=== PATIENT | male | born 1940 | race Caucasian/White ===

== ENCOUNTER → 2017-08-07 | Outpatient (CLI) | payer MEDICARE ==
[2017-08-07 10:46] LABS: Basophils # (A) 0.1 k/uL (0-0.2); Basophils % (A) 2 %; Eosinophils # (A) 0.4 k/uL (0-0.7); Eosinophils % (A) 6 %; HCT 47.9 % (39.0-53.0); HGB 16.5 gm/dL (13.0-17.5); Lymphocytes # (A) 1.3 k/uL (1.0-4.8); Lymphocytes % (A) 19 %; MCH 29.5 pg (25.0-35.0); MCHC 34.5 g/dL (31.0-37.0); MCV 85.6 fL (80.0-100.0); Mean Platelet Volume 6.9; Monocytes # (A) 0.5 k/uL (0-1.0); Monocytes % (A) 7 %; Neutrophils # (A) 4.4 k/uL (1.3-7.7); Neutrophils % (A) 65 %; Platelet Count 262 k/uL (150-450); RBC 5.59 m/uL (4.30-5.90); RDW 13.2 % (11.5-15.5); WBC 6.7 k/uL (3.8-10.6)
[2017-08-07 11:07] LABS: ALT 42 U/L (21-72); AST 29 U/L (17-59); Albumin 4.4 g/dL (3.5-5.0); Alkaline Phosphatase 126 U/L (38-126); Anion Gap 10 mmol/L; Blood Urea Nitrogen 15 mg/dL (9-20); Calcium 9.7 mg/dL (8.4-10.2); Carbon Dioxide 24 mmol/L (22-30); Chloride 104 mmol/L (98-107); Cholesterol 156 mg/dL (<200); Creatine Kinase 150 U/L (55-170); Glucose 103 mg/dL (74-99); HDL Cholesterol 47 mg/dL (40-60); LDL Cholesterol,Calculated 91 mg/dL (0-99); Sodium 138 mmol/L (137-145); Total Bilirubin 0.8 mg/dL (0.2-1.3); Total Protein 7.3 g/dL (6.3-8.2); Triglycerides 92 mg/dL (<150)
[2017-08-07 11:19] LABS: Potassium 4.6 mmol/L (3.5-5.1)
[2017-08-07 18:01] LABS: Hemoglobin A1C 5.1 % (4.0-6.0)
== END | disposition home or self-care (01) ==
LOC: LABWHC1 10:12
PROVIDERS: ATTEND Internal Medicine
DX: E78.5 Hyperlipidemia, unspecified (principal); I10 Essential (primary) hypertension
CPT/HCPCS: 36415; 80053; 80061; 82550; 83036; 83735; 84443; 85025

== ENCOUNTER → 2018-01-28 | Outpatient (CLI) | payer MEDICARE ==
--- NOTE | 2018-01-28 13:14 | XR ---
EXAMINATION TYPE: XR ankle complete RT DATE OF EXAM: 01/28/2018 COMPARISON: NONE HISTORY: Pain TECHNIQUE: Frontal, lateral and oblique images of the right ankle are obtained. COMPARISON: None. FINDINGS: There is no acute fracture/dislocation evident. The joint spaces appear within normal rodriguez its. Lateral soft tissue swelling noted. IMPRESSION: There is no acute fracture or dislocation seen.
== END | disposition home or self-care (01) ==
LOC: RADXRMAIN 12:45
PROVIDERS: ATTEND Internal Medicine
DX: M25.571 Pain in right ankle and joints of right foot (principal)

== ENCOUNTER → 2018-05-03 | Outpatient (CLI) | payer MEDICARE ==
[2018-05-03 12:12] LABS: Appearance,Urine Clear (Clear); Bilirubin,Urine Negative (Negative); Blood,Urine Negative (Negative); Color,Urine Yellow; Glucose,Urine (UA) Negative (Negative); Ketones,Urine Negative (Negative); Leukocyte Esterase,Urine Negative (Negative); Nitrite,Urine Negative (Negative); PH, Urine 6.5 (5.0-8.0); Protein,Urine Negative (Negative); Specific Gravity,Urine 1.016 (1.001-1.035); Urobilinogen,Urine <2.0 mg/dL (<2.0)
[2018-05-03 12:13] LABS: Basophils # (A) 0.1 k/uL (0-0.2); Basophils % (A) 1 %; Eosinophils # (A) 0.2 k/uL (0-0.7); Eosinophils % (A) 4 %; HCT 42.7 % (39.0-53.0); HGB 14.6 gm/dL (13.0-17.5); Lymphocytes # (A) 1.3 k/uL (1.0-4.8); Lymphocytes % (A) 22 %; MCH 30.2 pg (25.0-35.0); MCHC 34.2 g/dL (31.0-37.0); MCV 88.3 fL (80.0-100.0); Mean Platelet Volume 7.2; Monocytes # (A) 0.4 k/uL (0-1.0); Monocytes % (A) 7 %; Neutrophils # (A) 3.7 k/uL (1.3-7.7); Neutrophils % (A) 64 %; Platelet Count 264 k/uL (150-450); RBC 4.83 m/uL (4.30-5.90); RDW 13.8 % (11.5-15.5); WBC 5.8 k/uL (3.8-10.6)
[2018-05-03 20:56] LABS: T4, Free (Free Thyroxine) 1.1 ng/dL (0.80-1.80)
[2018-05-03 21:11] LABS: Hemoglobin A1C 5.1 % (4.0-6.0)
[2018-05-03 22:02] LABS: Albumin 4.5 g/dL (3.80-4.90); Albumin/Globulin Ratio 2.25 (1.20-2.10); Anion Gap 9.5 mmol/L (4.00-12.00); Calcium 8.4 mg/dL (8.7-10.3); Carbon Dioxide 24.5 mmol/L (21.6-31.8); Total Bilirubin 0.8 mg/dL (0.2-1.2); Total Protein 6.5 g/dL (6.2-8.2); Uric Acid 6.1 mg/dL (3.7-8.7)
[2018-05-03 22:03] LABS: LDL Cholesterol,Calculated 122.6 mg/dL (0.0-131.0); Magnesium 1.9 mg/dL (1.5-2.4); VLDL Calculation 23.4 mg/dL (5.00-40.00)
== END | disposition home or self-care (01) ==
LOC: LABWHC1 11:15
PROVIDERS: ATTEND Internal Medicine
DX: I10 Essential (primary) hypertension (principal); E78.5 Hyperlipidemia, unspecified; N40.0 Benign prostatic hyperplasia without lower urinary tract symptoms; R79.9 Abnormal finding of blood chemistry, unspecified
CPT/HCPCS: 36415; 80053; 80061; 81003; 82550; 83036; 83735; 84153; 84439; 84443; 84550; 85025

== ENCOUNTER → 2018-10-29 | Outpatient (CLI) | payer MEDICARE ==
[2018-10-29 11:43] LABS: Appearance,Urine Clear (Clear); Bilirubin,Urine Negative (Negative); Blood,Urine Negative (Negative); Color,Urine Yellow; Glucose,Urine (UA) Negative (Negative); Ketones,Urine Negative (Negative); Leukocyte Esterase,Urine Negative (Negative); Nitrite,Urine Negative (Negative); Protein,Urine Negative (Negative); Specific Gravity,Urine 1.016 (1.001-1.035); Urobilinogen,Urine <2.0 mg/dL (<2.0)
[2018-10-29 12:18] LABS: Basophils # (A) 0.1 k/uL (0-0.2); Basophils % (A) 1 %; Eosinophils # (A) 0.3 k/uL (0-0.7); Eosinophils % (A) 5 %; HCT 44.6 % (39.0-53.0); HGB 14.6 gm/dL (13.0-17.5); Lymphocytes # (A) 1.3 k/uL (1.0-4.8); Lymphocytes % (A) 21 %; MCH 28.5 pg (25.0-35.0); MCHC 32.8 g/dL (31.0-37.0); Mean Platelet Volume 7.5; Monocytes # (A) 0.4 k/uL (0-1.0); Monocytes % (A) 7 %; Neutrophils # (A) 4.1 k/uL (1.3-7.7); Neutrophils % (A) 64 %; Platelet Count 285 k/uL (150-450); RBC 5.12 m/uL (4.30-5.90); RDW 14.8 % (11.5-15.5); WBC 6.4 k/uL (3.8-10.6)
[2018-10-29 16:05] LABS: Albumin 4.3 g/dL (3.80-4.90); Albumin/Globulin Ratio 2.26 (1.60-3.17); Anion Gap 5.8 mmol/L (4.00-12.00); Calcium 9.2 mg/dL (8.7-10.3); Carbon Dioxide 25.2 mmol/L (21.6-31.8); Globulin 1.9 g/dL (1.6-3.3); Magnesium 2.1 mg/dL (1.5-2.4); Potassium 4.3 mmol/L (3.5-5.5); Total Bilirubin 0.9 mg/dL (0.3-1.2); Total Protein 6.2 g/dL (6.2-8.2); Uric Acid 5.9 mg/dL (3.7-8.7)
== END | disposition home or self-care (01) ==
LOC: LABWHC1 10:59
PROVIDERS: ATTEND Internal Medicine
DX: I10 Essential (primary) hypertension (principal); E78.2 Mixed hyperlipidemia; E55.9 Vitamin D deficiency, unspecified
CPT/HCPCS: 36415; 80053; 80061; 81003; 82550; 83735; 84439; 84443; 84550; 85025

== ENCOUNTER → 2019-01-24 | Outpatient (CLI) | payer MEDICARE ==
--- NOTE | 2019-01-25 11:15 | US ---
EXAMINATION TYPE: US kidneys/renal and bladder DATE OF EXAM: 01/24/2019 COMPARISON: US, CLINICAL HISTORY: R31.9 Hematuria; Renal cysts EXAM MEASUREMENTS: Right Kidney: 15.1 x 5.4 x 6.1 cm includes superior pole cyst Left Kidney: 12.7 x 4.5 x 6.3 cm Post Void Residual Volume: 63.2 mL Right Kidney: multiple renal cysts with largest cyst = 7.3 x 6.1 x 5.2cm Left Kidney: cluster of cysts at left lateral cortex = 6.1 x 5.3 x 5.0cm; cluster of superior pole sh adowing, calcifications are seen = 1.0 x 1.1 x 0.4cm. Bladder: wnl; prominent prostate is noted posteriorly Bilateral Jets seen: yes Normal Post Void Residual: no, as volume is greater than 50.0ml There is no evidence for hydronephrosis at this point in time. No masses are identified. The urinary bladder is anechoic. Bilateral ureteral jets are seen. IMPRESSION: 1. Multiple bilateral renal cysts. 2. Nonobstructing calcification within the left kidney. 3. Urinary retention
== END | disposition home or self-care (01) ==
LOC: RADUSMAIN 15:51
PROVIDERS: ATTEND Internal Medicine
DX: N28.1 Cyst of kidney, acquired (principal); N28.89 Other specified disorders of kidney and ureter; R33.9 Retention of urine, unspecified
CPT/HCPCS: 76770

== ENCOUNTER → 2019-04-25 | Outpatient (CLI) | payer MEDICARE ==
[2019-04-25 14:34] LABS: African American GFR (CKD) >90 (>60 ml/min/1.73 sqM); Blood Urea Nitrogen 11 mg/dL (9-20); Non-African American GFR(CKD) 85 (>60 ml/min/1.73 sqM)
--- NOTE | 2019-04-25 17:07 | CT ---
EXAMINATION TYPE: CT urogram wo/w con DATE OF EXAM: 04/25/2019 COMPARISON: Renal ultrasound dated 01/24/2019 HISTORY: hematuria. hx of stones. CT DLP: 3086.7 mGycm, Automated Exposure Control for Dose Reduction was Utilized. CONTRAST: CT scan of the abdomen and pelvis is performed with oral and with IV Contrast, patient injected with 100 mL of Isovue 300. FINDINGS: LUNG BASES: No significant abnormality is appreciated. Few coronary artery calcifications are incide ntally seen. LIVER/GB: There are hypoattenuated hepatic lesions with the largest measuring 3.3 cm, fluid attenuate d compatible with a benign cyst. Cholelithiasis is seen. Benign calcifications are present granulomat ous change. PANCREAS: No significant abnormality is seen. SPLEEN: For negative granulomatous change. ADRENALS: No significant abnormality is seen. KIDNEYS: The unenhanced images demonstrate a left upper pole 5 mm nonobstructing renal calculus and r ight lower pole 5 mm nonobstructing renal calculus. Emanating from the right upper pole there is an e xophytic 6.9 cm renal cyst. Emanating from the anterior right midpole there is a 3.1 cm renal cyst. F rom the lower pole of the right kidney there is a fluid attenuated 1.3 cm renal cyst. On the left fro m the lower pole there is a 5.4 cm renal cyst. Weighted images demonstrate no evidence of hydronephro sis. No uroepithelial thickening is seen. Delayed images do demonstrate punctate cortically-based dutch ateral subcentimeter renal lesions that are too small to accurately characterize. Incidentally noted circumaortic left renal vein. BOWEL: There is a small hiatal hernia. There are numerous sigmoid diverticula without pericolic fat s tranding. Appendix is air-filled and within normal limits. PROSTATE/SEMINAL VESICLES: Prostate gland is nodular and enlarged impressing upon the urinary bladder . Prostate gland is also heterogenous with central zone calcifications. The prostate gland measures 6 .4 cm in transverse dimension. LYMPH NODES: No greater than 1cm abdominal or pelvic lymph nodes are appreciated. OSSEOUS STRUCTURES: Sclerotic foci of the femoral head on the right are likely as is a sacral sclerot ic focus on image 67. L1 vertebral body hemangioma is seen. IMPRESSION: 1. Bilateral nonobstructing renal calculi. 2. Bilateral simple appearing renal cysts and other subcentimeter lesions that are too small to accur ately characterize. 3. Enlarged and heterogenous prostate gland impressing on the urinary bladder. 4. Incidentally noted hepatic cysts and cholelithiasis. Small hiatal hernia.
== END | disposition home or self-care (01) ==
LOC: RADCTMAIN 13:51
PROVIDERS: ATTEND Urology
DX: N20.0 Calculus of kidney (principal); N40.0 Benign prostatic hyperplasia without lower urinary tract symptoms; K44.9 Diaphragmatic hernia without obstruction or gangrene; Z88.0 Allergy status to penicillin
CPT/HCPCS: 82565; 84520; 74178; 36415; 74400; Q9967

== ENCOUNTER → 2019-07-28 | Day surgery (SDC) | payer MEDICARE ==
[2019-07-23 11:10] VITALS: BMI 31.1
[~2019-07-28] MED LIST: SODIUM CHLORIDE 0.9% 1,000 ML IV SCH
[2019-07-28 06:37] VITALS: BP 145/69; PULSE 49; RESP 18; TEMP 98
[2019-07-28 06:51] LABS: Calcium 9.5 mg/dL (8.4-10.2); Potassium 4.6 mmol/L (3.5-5.1)
== END ==
LOC: CATHCVL 06:07
PROVIDERS: ATTEND Internal Medicine Interventional Cardiology
DX: I48.0 Paroxysmal atrial fibrillation (principal); I25.10 Atherosclerotic heart disease of native coronary artery without angina pectoris; I10 Essential (primary) hypertension; Z53.8 Procedure and treatment not carried out for other reasons; I65.23 Occlusion and stenosis of bilateral carotid arteries; E78.5 Hyperlipidemia, unspecified; Z72.0 Tobacco use; Z88.0 Allergy status to penicillin; Z79.01 Long term (current) use of anticoagulants; Z79.899 Other long term (current) drug therapy
CPT/HCPCS: 80048

== ENCOUNTER → 2019-11-17 | Outpatient (CLI) | payer MEDICARE ==
--- NOTE | 2019-11-17 13:29 | US ---
EXAMINATION TYPE: US kidneys/renal and bladder DATE OF EXAM: 11/17/2019 COMPARISON: 01/24/2019, CT 04/25/2019 CLINICAL HISTORY: 79-year-old male R31.9 Hematuria. History of bladder cancer, renal stones and cysts TECHNIQUE: Multiple sonographic images of the kidneys and bladder are obtained. FINDINGS: EXAM MEASUREMENTS: Right Kidney: 11.8 x 6.3 x 7.1 cm Left Kidney: 12.3 x 5.0 x 6.7 cm Right Kidney: Lateral 8.5cm cyst seen, smaller cyst noted medially. No hydronephrosis. Left Kidney: 5.9cm cystic lateral lesion seen, 3.8cm vague hypoechoic lesion at the midpole. No hydro nephrosis. Bladder: Slight mural-based irregularity noted along right side of bladder wall. Probable 1.7cm shado wing stone noted posterior right bladder. Bilateral Jets seen: saw left jet twice IMPRESSION: 1. No hydronephrosis. 2. Bilateral renal cysts. 3. An indeterminate 3.8 cm vague hypoechoic lesion at the left renal midpole. No corresponding lesion was seen on the patient's prior exams. Recommend contrast-enhanced CT to exclude a mass. 4. Possible right UVJ versus dependent bladder calculus measuring 1.7 cm. 5. Slight mural-based irregularity along the right side of the bladder wall probably related to hyper trophic changes from BPH. However, given the asymmetry, correlate with urine cytology and direct visu alization as indicated to exclude an early urothelial lesion.
== END | disposition home or self-care (01) ==
LOC: RADUSWWP 10:59
PROVIDERS: ATTEND Urology
DX: N28.1 Cyst of kidney, acquired (principal); N32.89 Other specified disorders of bladder; N40.0 Benign prostatic hyperplasia without lower urinary tract symptoms; C67.9 Malignant neoplasm of bladder, unspecified
CPT/HCPCS: 76770

== ENCOUNTER → 2019-12-02 | Outpatient (CLI) | payer MEDICARE ==
[2019-12-02 12:03] LABS: African American GFR (CKD) >90 (>60 ml/min/1.73 sqM); Blood Urea Nitrogen 12 mg/dL (9-20); Non-African American GFR(CKD) 84 (>60 ml/min/1.73 sqM)
--- NOTE | 2019-12-02 15:50 | CT ---
EXAMINATION TYPE: CT abdomen pelvis w con DATE OF EXAM: 12/02/2019 COMPARISON: 04/25/2019 HISTORY: 79-year-old male History of bladder cancer. Abnormal US. TECHNIQUE: Contiguous axial scanning of the abdomen and pelvis following administration of 100 ml Iso demi 300 IV contrast. Delayed images through the kidneys and bladder and coronal/sagittal reconstruct ions performed. CT DLP: 1935 mGycm Automated exposure control for dose reduction was used. FINDINGS: Heart normal size without pericardial effusion. Lung bases show some strandy scarring or atelectasis. No pleural effusion. Multiple hepatic cysts are redemonstrated measuring up to 3.4 cm. A few scattered calcified granuloma s in the liver. Approximately 3 dependent gallstones measuring up to 1.1 cm. No abnormal gallbladder distention. No b iliary ductal dilatation. Portal venous system is patent. Adrenal glands and spleen appear within normal limits. Stable 1 cm pancreatic tail cystic lesion. An additional one-year follow-up with MRI can be performed given relative stability from 04/25/2019. Bilateral renal cysts are redemonstrated, largest in the right upper pole measuring 7.2 cm and horse breeder ior left lower pole measuring 5.5 cm. Some subcentimeter cortical hypodensities in the left upper pole too small fractured CT characterizat ion but also likely represent cysts. 5 mm nonobstructive left upper pole renal calculus. The previous 6 mm right renal calculus has passe d. Circumaortic left renal vein. No dilated small bowel, free fluid, free air. No mesenteric or retroperitoneal lymphadenopathy. Normal appendix. Mild scattered stool. Left-sided colonic diverticulosis, extensive within the proxim al to mid sigmoid. No pericolic inflammatory change. Moderate atherosclerotic changes within the abdominal aorta and iliac arteries without aneurysm. Patulous left inguinal canal. 8 mm calculus along the posterior wall of the right side of the bladder. Symmetric uptake and excreti on of contrast from both kidneys. No mural-based irregularity along the posterior wall. There is some soft tissue impressing at the pos terior bladder base relating to enlarged prostate gland measuring 6.7 cm wide. Central calcifications are noted. No abnormal fluid collection in the pelvis or pelvic lymphadenopathy. Bones degenerative changes of the hips. Degenerative disc disease at L5-S1. Facet arthropathy lower l umbar spine. Fatty matrix hemangioma within the L1 vertebral body. IMPRESSION: 1. THE PREVIOUS 6 MM RIGHT RENAL CALCULUS IS SUSPECTED TO HAVE PASSED AND IS NOW DEPENDENT WITHIN THE RIGHT SIDE OF THE BLADDER. NO OBSTRUCTIVE UROPATHY. THIS LIKELY CORRESPONDS TO THE CALCIFICATION SEE N ON THE 11/17/2019 ULTRASOUND. 2. SOME MURAL BASED DENSITY ALONG THE POSTERIOR BLADDER BASE SEEN ON ULTRASOUND LIKELY CORRESPONDS TO SOFT TISSUE IMPRESSION FROM THE ENLARGED PROSTATE GLAND. NO SUSPICIOUS UROTHELIAL LESION SEEN ALONG THE POSTERIOR THIRD OF THE OPACIFIED BLADDER ON THE DELAYED SCAN. THE ANTERIOR TWO THIRDS OF THE BLAD LOREE ARE NONOPACIFIED AND NOT OPTIMALLY ASSESSED. 3. BILATERAL RENAL CYSTS MEASURING UP TO 7.2 CM. NONOBSTRUCTIVE 5 MM LEFT RENAL CALCULUS. 4. CHOLELITHIASIS. LEFT-SIDED COLONIC DIVERTICULOSIS, GREATEST IN THE PROXIMAL TO MID SIGMOID COLON.
== END | disposition home or self-care (01) ==
LOC: RADCTMAIN 11:08
PROVIDERS: ATTEND Urology
DX: D41.02 Neoplasm of uncertain behavior of left kidney (principal); N20.0 Calculus of kidney; N28.1 Cyst of kidney, acquired; K57.30 Diverticulosis of large intestine without perforation or abscess without bleeding; K80.20 Calculus of gallbladder without cholecystitis without obstruction; Z88.0 Allergy status to penicillin
CPT/HCPCS: 82565; 84520; 74177; 36415; Q9967

== ENCOUNTER 2020-11-28 14:19 | Emergency (ER) | payer MEDICARE ==
[2020-11-28 14:26] VITALS: RESP 16
--- NOTE | 2020-11-28 15:16 | ED ---
General Adult HPI - General Chief complaint: Recheck/Abnormal Lab/Rx Stated complaint: vision Problems Time Seen by Provider: 11/28/20 14:40 Source: patient, RN notes reviewed, old records reviewed Mode of arrival: wheelchair Limitations: no limitations - History of Present Illness Initial comments: 80-year-old male presenting for evaluation of left arm numbness, visual changes. Patient was driving, prior to arrival and had is some distortion in his vision. Subsequently resolved. His vision is totally back to normal. He does have some residual left arm numbness. Denies weakness. He is on anticoagulation and took an aspirin prior to arrival. He denies any slurred speech. Denies chest pain or dyspnea. No abdominal pain. No vomiting. He had eaten well today. - Related Data Home Medications Medication Instructions Recorded Confirmed Amiodarone [Cordarone] 200 mg PO BID 07/23/19 07/28/19 Apixaban [Eliquis] 5 mg PO BID 07/23/19 07/28/19 Atorvastatin [Lipitor] 40 mg PO HS 07/23/19 07/28/19 B Complex-Vit C-Vit E-Zinc [Z-Bec] 1 tab PO DAILY 07/23/19 07/28/19 Calcium Carbonate [Calcium] 600 mg PO DAILY 07/23/19 07/28/19 Calcium/Magnesium/Zinc 1 each PO DAILY 07/23/19 07/28/19 [Ynranxc-Gfyhcjldf-Tfhl Tablet] Finasteride [Proscar] 5 mg PO QAM 07/23/19 07/28/19 Fish Oil/Dha/Epa [Fish Oil 1,200 1 each PO DAILY 07/23/19 07/28/19 mg Fish Oil] Metoprolol Tartrate 25 mg PO BID 07/23/19 07/28/19 Multivitamins, Thera [Multivitamin 1 tab PO DAILY 07/23/19 07/28/19 (formulary)] Tamsulosin [Flomax] 0.4 mg PO BID 07/23/19 07/28/19 Ubidecarenone [Co Q-10] 100 mg PO DAILY 07/23/19 07/28/19 lisinopriL [Zestril] 5 mg PO QAM 07/23/19 07/28/19 Allergies Allergy/AdvReac Type Severity Reaction Status Date / Time Penicillins Allergy Unknown Verified 11/28/20 14:20 Childhood Review of Systems ROS Statement: Those systems with pertinent positive or pertinent negative responses have been documented in the HPI. ROS Other: All systems not noted in ROS Statement are negative. Past Medical History Past Medical History: Atrial Flutter, Cancer, Hyperlipidemia, Hypertension, Prostate Disorder Additional Past Medical History / Comment(s): blader cancer, enlarged prostate, diverticulitis History of Any Multi-Drug Resistant Organisms: None Reported Past Surgical History: Bladder Surgery, Orthopedic Surgery, Prostate Surgery Additional Past Surgical History / Comment(s): colonoscopy, cervical disc sugery, cardioversion Past Anesthesia/Blood Transfusion Reactions: No Reported Reaction Smoking Status: Never smoker Past Alcohol Use History: Rare Past Drug Use History: None Reported - Past Family History Mother Family Medical History: Cancer Additional Family Medical History / Comment(s): stomach Sister(s) Family Medical History: Cancer General Exam Limitations: no limitations General appearance: alert, in no apparent distress Head exam: Present: atraumatic, normocephalic Eye exam: Present: normal appearance, PERRL, EOMI, other (No visual field deficit, the visualized portion of the retina is within normal limits on a limited nondilated exam.) ENT exam: Present: normal exam Neck exam: Present: normal inspection. Absent: tenderness, meningismus Respiratory exam: Present: normal lung sounds bilaterally. Absent: respiratory distress, wheezes Cardiovascular Exam: Present: regular rate, normal rhythm GI/Abdominal exam: Present: soft. Absent: distended, tenderness, guarding Extremities exam: Present: normal inspection, normal capillary refill. Absent: pedal edema, calf tenderness Neurological exam: Present: alert, oriented X3, CN II-XII intact, other (NIH is 0 but does have some paresthesia in the left arm.). Absent: motor sensory deficit Psychiatric exam: Present: normal affect, normal mood Skin exam: Present: warm, dry, intact. Absent: cyanosis, diaphoretic Course Vital Signs 11/28/20 11/28/20 11/28/20 14:21 15:00 15:30 Temperature 97.8 F 98.3 F 98.2 F Pulse Rate 63 59 L 52 L Respiratory 16 16 16 Rate Blood Pressure 138/62 147/63 136/76 O2 Sat by Pulse 96 93 L 98 Oximetry 11/28/20 16:00 Temperature 98.2 F Pulse Rate 51 L Respiratory 16 Rate Blood Pressure 135/69 O2 Sat by Pulse 97 Oximetry EKG Findings - EKG Comments: EKG Findings:: EKG: Sinus bradycardia, left axis, LVH, rate of 58, WI interval 160, QRS duration 90, QTC [address] segment elevation. Medical Decision Making - Medical Decision Making 80-year-old male with transient visual disturbance resolved prior to arrival. Exam in the emergency Department is within normal limits. There was Concern That This Could Be Related to Stroke, CT Was Performed Which Showed Age-Related Changes and Chronic Ischemic Changes without Acute Process. Laboratory Testing Is Unremarkable. Patient Has Been Return to Normal with No Complaints. We Did Discuss Possibility of TIA and Admission for Further Imaging and Evaluation Patient Declines Wishes to Be Discharged Home. Given Strict Return Parameters. He Is Already Anticoagulated at Baseline. Will Return with Any Worsening or Changing Symptoms. - Lab Data Result diagrams: 11/28/20 15:06 11/28/20 15:06 Lab Results 11/28/20 11/28/20 11/28/20 Range/Units 15:06 15:06 15:06 WBC 7.1 (3.8-10.6) k/uL RBC 5.09 (4.30-5.90) m/uL Hgb 15.2 (13.0-17.5) gm/dL Hct 43.5 (39.0-53.0) % MCV 85.4 (80.0-100.0) fL MCH 29.9 (25.0-35.0) pg MCHC 35.0 (31.0-37.0) g/dL RDW 13.5 (11.5-15.5) % Plt Count 259 (150-450) k/uL MPV 7.4 Neutrophils % 69 % Lymphocytes % 18 % Monocytes % 7 % Eosinophils % 2 % Basophils % 1 % Neutrophils # 4.9 (1.3-7.7) k/uL Lymphocytes # 1.3 (1.0-4.8) k/uL Monocytes # 0.5 (0-1.0) k/uL Eosinophils # 0.2 (0-0.7) k/uL Basophils # 0.1 (0-0.2) k/uL PT 10.7 (9.0-12.0) sec INR 1.0 (<1.2) APTT 28.6 (22.0-30.0) sec Sodium 139 (137-145) mmol/L Potassium 3.9 (3.5-5.1) mmol/L Chloride 107 (98-107) mmol/L Carbon Dioxide 25 (22-30) mmol/L Anion Gap 7 mmol/L BUN 15 (9-20) mg/dL Creatinine 0.77 (0.66-1.25) mg/dL Est GFR (CKD-EPI)AfAm >90 (>60 ml/min/1.73 sqM) Est GFR (CKD-EPI)NonAf 85 (>60 ml/min/1.73 sqM) Glucose 114 H (74-99) mg/dL Calcium 9.6 (8.4-10.2) mg/dL Total Bilirubin 0.6 (0.2-1.3) mg/dL AST 30 (17-59) U/L ALT 26 (4-49) U/L Alkaline Phosphatase 140 H (38-126) U/L Troponin I (0.000-0.034) ng/mL Total Protein 6.5 (6.3-8.2) g/dL Albumin 4.1 (3.5-5.0) g/dL 11/28/20 Range/Units 15:06 WBC (3.8-10.6) k/uL RBC (4.30-5.90) m/uL Hgb (13.0-17.5) gm/dL Hct (39.0-53.0) % MCV (80.0-100.0) fL MCH (25.0-35.0) pg MCHC (31.0-37.0) g/dL RDW (11.5-15.5) % Plt Count (150-450) k/uL MPV Neutrophils % % Lymphocytes % % Monocytes % % Eosinophils % % Basophils % % Neutrophils # (1.3-7.7) k/uL Lymphocytes # (1.0-4.8) k/uL Monocytes # (0-1.0) k/uL Eosinophils # (0-0.7) k/uL Basophils # (0-0.2) k/uL PT (9.0-12.0) sec INR (<1.2) APTT (22.0-30.0) sec Sodium (137-145) mmol/L Potassium (3.5-5.1) mmol/L Chloride (98-107) mmol/L Carbon Dioxide (22-30) mmol/L Anion Gap mmol/L BUN (9-20) mg/dL Creatinine (0.66-1.25) mg/dL Est GFR (CKD-EPI)AfAm (>60 ml/min/1.73 sqM) Est GFR (CKD-EPI)NonAf (>60 ml/min/1.73 sqM) Glucose (74-99) mg/dL Calcium (8.4-10.2) mg/dL Total Bilirubin (0.2-1.3) mg/dL AST (17-59) U/L ALT (4-49) U/L Alkaline Phosphatase (38-126) U/L Troponin I <0.012 (0.000-0.034) ng/mL Total Protein (6.3-8.2) g/dL Albumin (3.5-5.0) g/dL Disposition Clinical Impression: Dehydration Disposition: HOME SELF-CARE Condition: Good Instructions (If sedation given, give patient instructions): Dehydration (ED) Is patient prescribed a controlled substance at d/c from ED?: No Referrals: Yeimi Johnson MD [Primary Care Provider] - 1-2 days Time of Disposition: 16:53
--- NOTE | 2020-11-28 15:46 | CT ---
EXAMINATION TYPE: CT brain wo con DATE OF EXAM: 11/28/2020 COMPARISON: None HISTORY: visual changes CT DLP: 1182.4 mGycm Automated exposure control for dose reduction was used. There is cerebral atrophy. There is white matter hypodensity in both cerebral hemispheres. There is m ild enlargement of the ventricles. There is no mass effect nor midline shift. There is no sign of int racranial hemorrhage. The calvarium is intact. Skull base is intact. IMPRESSION: Cerebral atrophy and moderate chronic small vessel ischemia. No acute intracranial abnormality.
[2020-11-28 16:00] LABS: Basophils # (A) 0.1 k/uL (0-0.2); Basophils % (A) 1 %; Eosinophils # (A) 0.2 k/uL (0-0.7); Eosinophils % (A) 2 %; HCT 43.5 % (39.0-53.0); HGB 15.2 gm/dL (13.0-17.5); Lymphocytes # (A) 1.3 k/uL (1.0-4.8); Lymphocytes % (A) 18 %; MCH 29.9 pg (25.0-35.0); MCV 85.4 fL (80.0-100.0); Mean Platelet Volume 7.4; Monocytes # (A) 0.5 k/uL (0-1.0); Monocytes % (A) 7 %; Neutrophils # (A) 4.9 k/uL (1.3-7.7); Neutrophils % (A) 69 %; Platelet Count 259 k/uL (150-450); RBC 5.09 m/uL (4.30-5.90); RDW 13.5 % (11.5-15.5); WBC 7.1 k/uL (3.8-10.6)
[2020-11-28 16:22] LABS: ALT 26 U/L (4-49); AST 30 U/L (17-59); African American GFR (CKD) >90 (>60 ml/min/1.73 sqM); Albumin 4.1 g/dL (3.5-5.0); Alkaline Phosphatase 140 U/L (38-126); Anion Gap 7 mmol/L; Blood Urea Nitrogen 15 mg/dL (9-20); Calcium 9.6 mg/dL (8.4-10.2); Carbon Dioxide 25 mmol/L (22-30); Chloride 107 mmol/L (98-107); Glucose 114 mg/dL (74-99); Non-African American GFR(CKD) 85 (>60 ml/min/1.73 sqM); Potassium 3.9 mmol/L (3.5-5.1); Sodium 139 mmol/L (137-145); Total Bilirubin 0.6 mg/dL (0.2-1.3); Total Protein 6.5 g/dL (6.3-8.2)
[2020-11-28 16:24] LABS: Partial Thromboplastin Time 28.6 sec (22.0-30.0); Prothrombin Time 10.7 sec (9.0-12.0)
[2020-11-28 17:07] VITALS: BP 141/71; PULSE 54; TEMP 98.3
== END 2020-11-28 17:05 | disposition home or self-care (01) ==
LOC: EC 14:19
DX: E86.0 Dehydration (principal); R20.0 Anesthesia of skin; I10 Essential (primary) hypertension; E78.5 Hyperlipidemia, unspecified; N40.0 Benign prostatic hyperplasia without lower urinary tract symptoms; Z79.82 Long term (current) use of aspirin; Z79.01 Long term (current) use of anticoagulants; Z88.0 Allergy status to penicillin
CPT/HCPCS: 36415; 70450; 80053; 84484; 85025; 85610; 85730; 93005; 99285

== ENCOUNTER → 2021-06-01 | Outpatient (CLI) | payer MEDICARE ==
--- NOTE | 2021-06-01 10:09 | XR ---
EXAMINATION TYPE: XR chest 2V DATE OF EXAM: 06/01/2021 COMPARISON: 08/17/2013 HISTORY: Shortness of breath TECHNIQUE: Frontal and lateral views of the chest are obtained. FINDINGS: Scattered senescent parenchymal changes noted. Hyperinflation compatible with COPD. No evidence for infiltrate. No evidence for atelectasis. Heart size is stable. Mediastinal structures are stable and grossly unremarkable. No evidence for hilar prominence. Degenerative changes dorsal spine. IMPRESSION: 1. No evidence for acute pulmonary disease.
== END | disposition home or self-care (01) ==
LOC: RADXRMAIN 09:48
PROVIDERS: ATTEND Internal Medicine
DX: R06.02 Shortness of breath (principal)
CPT/HCPCS: 71046

== ENCOUNTER → 2021-08-01 | Outpatient (CLI) | payer MEDICARE ==
--- NOTE | 2021-08-01 13:58 | CT ---
EXAMINATION TYPE: CT brain wo con DATE OF EXAM: 08/01/2021 COMPARISON: CT dated 11/28/2020 HISTORY: CHRONIC TENSION-TYPE HEADACHE, INTRACTABLE CT DLP: 1266 mGycm Automated exposure control for dose reduction was used. TECHNIQUE: CT scan of the brain is performed without IV contrast administration. FINDINGS: Extensive bilateral cerebral periventricular and subcortical white matter hypodensities likely repres enting advanced chronic microvascular ischemic changes. Scattered arterial atherosclerotic calcificat ions. Brain volume loss changes, likely age-related. No acute intracranial hemorrhage or gross acute cortical infarct. No midline shift or herniation. Unr emarkable basal cisterns, sella and CP angles. No gross space-occupying lesion, vasogenic edema or ma ss effect. Unremarkable orbits. Deviated bony nasal septum convex to the right side. Clear visualized paranasal sinuses and mastoid cells. Degenerative changes of the left TMJ. No aggressive bone lesion. IMPRESSION: Extensive bilateral cerebral white matter hypodensities likely representing advanced chronic microvas cular ischemic changes. No acute intracranial abnormality or gross space-occupying lesion by this non enhanced CT scan. Further MRI assessment can be considered if clinically required.
== END | disposition home or self-care (01) ==
LOC: RADCTMAIN 11:35
PROVIDERS: ATTEND Internal Medicine
DX: G44.221 Chronic tension-type headache, intractable (principal)
CPT/HCPCS: 70450

== ENCOUNTER → 2021-12-23 | Outpatient (CLI) | payer MEDICARE ==
--- NOTE | 2021-12-24 03:51 | MR ---
EXAMINATION TYPE: MR iac wo/w con DATE OF EXAM: 12/23/2021 COMPARISON: None HISTORY: Dizziness, head pressure. CONTRAST: Standard multiplanar, multisequence MRI departmental protocol images were obtained without contrast a nd with 9 mL intravenous Gadavist gadolinium contrast. Diffusion images show no evidence of an acute infarct. There is enlargement of the ventricles. There is increased signal in the periventricular white matter on the T2 and FLAIR images. There is diffuse cerebral atrophy. There is thinning of the corpus callosum. The brainstem is intact. The sella turcic a is intact. There is no evidence of orbital mass. Additional thin sections were obtained through the posterior fossa. The internal auditory canals appe ar normal. No evidence of cerebellopontine angle mass. The acoustic nerve and vestibular nerve appear normal. There is no pathologic enhancement. IMPRESSION: Moderate atrophy and hydrocephalus. Chronic white matter disease probably related to microvascular is chemia. No focal posterior fossa abnormality.
== END | disposition home or self-care (01) ==
LOC: RADMRIMAIN 15:16
PROVIDERS: ATTEND Otolaryngology
DX: G91.9 Hydrocephalus, unspecified (principal); G31.9 Degenerative disease of nervous system, unspecified; R42 Dizziness and giddiness
CPT/HCPCS: 70553; A9585

== ENCOUNTER → 2022-02-10 | Outpatient (CLI) | payer MEDICARE ==
[2022-02-10 18:33] LABS: Protein, Total 6.6 g/dL (6.2-8.2)
[2022-02-13 11:13] LABS: Albumin 4.05 g/dL (3.80-4.90); Gamma Globulin 0.76 g/dL (0.70-1.50)
== END | disposition home or self-care (01) ==
LOC: LABWHC1 11:16
PROVIDERS: ATTEND Psychiatry & Neurology Neurology
DX: G60.9 Hereditary and idiopathic neuropathy, unspecified (principal); R26.89 Other abnormalities of gait and mobility
CPT/HCPCS: 36415; 82607; 82746; 84165; 84207

== ENCOUNTER → 2022-06-12 | Outpatient (CLI) | payer MEDICARE ==
--- NOTE | 2022-06-12 09:55 | CT ---
EXAMINATION TYPE: CT brain wo con DATE OF EXAM: 06/12/2022 COMPARISON: 08/01/2021 HISTORY: intractable post traumatic headache, fall in January and March 2022 CT DLP: 1278 mGycm Automated exposure control for dose reduction was used. FINDINGS: Extensive bilateral cerebral periventricular and subcortical white matter hypodensities likely repres enting advanced chronic microvascular ischemic changes. Scattered arterial atherosclerotic calcificat ions. Brain volume loss changes, likely age-related. No acute intracranial hemorrhage or gross acute cortical infarct. No midline shift or herniation. Unr emarkable basal cisterns, sella and CP angles. No gross space-occupying lesion, vasogenic edema or ma ss effect. Unremarkable orbits. Deviated bony nasal septum convex to the right side. Clear visualized paranasal sinuses and mastoid cells. Degenerative changes of the left TMJ. No aggres sive bone lesion. IMPRESSION: MODERATE DEGENERATIVE CHANGE OF THE GREATER CENTRAL COMPONENT. EXTENSIVE WHITE MATTER CHANGES ARE SEE N WHICH MAY BE THE BASIS OF REMOTE ISCHEMIA. GIVEN THE GREATER CENTRAL COMPONENT OF VENTRICULAR DILAT ION OR NORMAL PRESSURE HYDROCEPHALUS\HYDROCEPHALUS WITH TRANSEPENDYMAL EDEMA WOULD BE IN THE DIFFEREN TIAL DIAGNOSIS. FINDINGS ARE STABLE.
== END | disposition home or self-care (01) ==
LOC: RADCTMAIN 09:08
PROVIDERS: ATTEND Internal Medicine
DX: G31.9 Degenerative disease of nervous system, unspecified (principal); G91.9 Hydrocephalus, unspecified; G44.311 Acute post-traumatic headache, intractable; R90.82 White matter disease, unspecified
CPT/HCPCS: 70450

== ENCOUNTER 2023-05-12 09:57 | Emergency (ER) | payer MEDICARE ==
[2023-05-12 10:57] VITALS: TEMP 97.9
--- NOTE | 2023-05-12 11:03 | ED ---
Skin/Abscess/FB HPI - General Chief complaint: Skin/Abscess/Foreign Body Stated complaint: right leg/pain spider bite Time Seen by Provider: 05/12/23 10:31 Source: patient, RN notes reviewed Mode of arrival: ambulatory Limitations: no limitations - History of Present Illness Initial comments: This is an 82-year-old male who presents to the emergency department for concerns of a spider bite to the right ankle. States that he was bitten in the right ankle by a spider around 5 weeks ago. Unsure what kind of spider this was. He went to urgent care a few weeks ago and was started on Bactrim and Keflex for 10 days due to concern for superimposed infection. He finished these 3 days ago. He feels like the swelling has started to improve, however the pain is getting worse. Denies any fevers or chills. He is not taking anything for management of his pain. - Related Data Home Medications Medication Instructions Recorded Confirmed Amiodarone [Cordarone] 200 mg PO BID 07/23/19 07/28/19 Apixaban [Eliquis] 5 mg PO BID 07/23/19 07/28/19 Atorvastatin [Lipitor] 40 mg PO HS 07/23/19 07/28/19 B Complex-Vit C-Vit E-Zinc [Z-Bec] 1 tab PO DAILY 07/23/19 07/28/19 Calcium Carbonate [Calcium] 600 mg PO DAILY 07/23/19 07/28/19 Calcium/Magnesium/Zinc 1 each PO DAILY 07/23/19 07/28/19 [Tltcwje-Xitjfoxbl-Cinp Tablet] Finasteride [Proscar] 5 mg PO QAM 07/23/19 07/28/19 Fish Oil/Dha/Epa [Fish Oil 1,200 1 each PO DAILY 07/23/19 07/28/19 mg Fish Oil] Metoprolol Tartrate 25 mg PO BID 07/23/19 07/28/19 Multivitamins, Thera [Multivitamin 1 tab PO DAILY 07/23/19 07/28/19 (formulary)] Tamsulosin [Flomax] 0.4 mg PO BID 07/23/19 07/28/19 Ubidecarenone [Co Q-10] 100 mg PO DAILY 07/23/19 07/28/19 lisinopriL [Zestril] 5 mg PO QAM 07/23/19 07/28/19 Allergies Allergy/AdvReac Type Severity Reaction Status Date / Time Penicillins Allergy Unknown Verified 05/12/23 10:29 Childhood Review of Systems ROS Statement: Those systems with pertinent positive or pertinent negative responses have been documented in the HPI. ROS Other: All systems not noted in ROS Statement are negative. Past Medical History Past Medical History: Atrial Flutter, Cancer, Hyperlipidemia, Hypertension, Prostate Disorder Additional Past Medical History / Comment(s): blader cancer, enlarged prostate, diverticulitis History of Any Multi-Drug Resistant Organisms: None Reported Past Surgical History: Bladder Surgery, Orthopedic Surgery, Prostate Surgery Additional Past Surgical History / Comment(s): colonoscopy, cervical disc sugery, cardioversion Past Anesthesia/Blood Transfusion Reactions: No Reported Reaction Past Psychological History: No Psychological Hx Reported Smoking Status: Never smoker Past Alcohol Use History: Rare Past Drug Use History: None Reported - Past Family History Mother Family Medical History: Cancer Additional Family Medical History / Comment(s): stomach Sister(s) Family Medical History: Cancer General Exam Limitations: no limitations General appearance: alert, in no apparent distress Head exam: Present: atraumatic, normocephalic, normal inspection Respiratory exam: Present: normal lung sounds bilaterally. Absent: respiratory distress, wheezes, rales, rhonchi, stridor Cardiovascular Exam: Present: regular rate, normal rhythm, normal heart sounds. Absent: systolic murmur, diastolic murmur, rubs, gallop, clicks Extremities exam: Present: other (There is an area of erythema, tenderness, and warmth with a centralized area of swelling to the distal aspect of the right tib-fib.) Neurological exam: Present: alert, oriented X3, CN II-XII intact Psychiatric exam: Present: normal affect, normal mood Skin exam: Present: warm, dry, intact, normal color. Absent: rash Course Vital Signs 05/12/23 05/12/23 10:23 13:01 Temperature 97.9 F Pulse Rate 50 L 76 Respiratory 18 16 Rate Blood Pressure 132/61 132/78 O2 Sat by Pulse 96 99 Oximetry Medical Decision Making - Medical Decision Making This is an 82-year-old male who presents to the emergency department for concerns of an infection to his right leg. Was pt. sent in by a medical professional or institution? @ -No Did you speak to anyone other than the patient for history? @ -No Did you review nursing and triage notes? @ -Yes, and I agree, it is accurate with regards to the patient's symptoms. Were old charts reviewed? @ -No Differential Diagnosis? @ -Differential Leg Erythema: Cellulitis, inflammation, dermatitis, abscess, this is not meant to be an all- inclusive list. EKG interpreted by me (3pts min.)? @ -Not obtained X-rays interpreted by me (1pt min.)? @ -X-ray of the right tib-fib obtained. My interpretation identifies no evidence of subcutaneous gas formation or osseous obstruction. CT interpreted by me (1pt min.)? @ -Not obtained U/S interpreted by me (1pt. min.)? @ -Not obtained What testing was considered but not performed? (CT, X-rays, U/S, labs)? Why? @ -None What meds were considered but not given? Why? @ -None Did you discuss the management of the patient with other professionals? @ -No Did you reconcile home meds? @ -No Was smoking cessation discussed for >3mins.? @ -No Was critical care preformed (if so, how long)? @ -No Were there social determinants of health that impacted care today? How? (Homelessness, low income, unemployed, alcoholism, drug addiction, transportation, low edu. Level, literacy, decrease access to med. care, senior living, rehab)? @ -No Was there de-escalation of care discussed even if they declined? (Discuss DNR or withdrawal of care, Hospice)? @ -No What co-morbidities impacted this encounter? (DM, HTN, Smoking, COPD, CAD, Cancer, CVA, Hep., AIDS, mental health diagnosis, sleep apnea, morbid obesity)? @ -None Was patient admitted / discharged? @ -Discharged. Lab work obtained and found to be unremarkable. X-ray of the right tib-fib obtained revealing no acute process. Dr. Wilder evaluated the patient at bedside as well, and advised the patient that this is likely residual inflammation as opposed to persistent infection. He advised the patient to monitor this area and no additional antibiotics need to be started. Advised ibuprofen and Tylenol as needed for pain relief and follow-up with his primary care provider. Undiagnosed new problem with uncertain prognosis? @ -None Drug Therapy requiring intensive monitoring for toxicity (Heparin, Nitro, Insulin, Cardizem)? @ -None Were any procedures done? @ -None Diagnosis/symptom? @ -Spider bite Acute, or Chronic, or Acute on Chronic? @ -Acute Uncomplicated (without systemic symptoms) or Complicated (systemic symptoms)? @ -Uncomplicated Side effects of treatment? @ -None Exacerbation, Progression, or Severe Exacerbation] @ -Not applicable Poses a threat to life or bodily function? @ -No Return precautions reviewed in depth, the patient is instructed to return to the emergency department with any new, worsening, or concerning symptoms. Patient verbalized understanding. This case was discussed in detail with the attending ED physician, Dr. Wilder. Presentation, findings, and treatment plan discussed in detail as well. - Lab Data Result diagrams: 05/12/23 11:08 05/12/23 11:08 Lab Results 05/12/23 05/12/23 05/12/23 Range/Units 11:08 11:08 11:08 WBC 6.5 (3.8-10.6) k/uL RBC 5.16 (4.30-5.90) m/uL Hgb 15.6 (13.0-17.5) gm/dL Hct 46.0 (39.0-53.0) % MCV 89.2 (80.0-100.0) fL MCH 30.3 (25.0-35.0) pg MCHC 34.0 (31.0-37.0) g/dL RDW 12.9 (11.5-15.5) % Plt Count 278 (150-450) k/uL MPV 7.7 Neutrophils % 57 % Lymphocytes % 27 % Monocytes % 7 % Eosinophils % 6 % Basophils % 1 % Neutrophils # 3.7 (1.3-7.7) k/uL Lymphocytes # 1.7 (1.0-4.8) k/uL Monocytes # 0.4 (0-1.0) k/uL Eosinophils # 0.4 (0-0.7) k/uL Basophils # 0.1 (0-0.2) k/uL Sodium 136 L (137-145) mmol/L Potassium 4.8 (3.5-5.1) mmol/L Chloride 104 (98-107) mmol/L Carbon Dioxide 20 L (22-30) mmol/L Anion Gap 12 mmol/L BUN 20 (9-20) mg/dL Creatinine 0.76 (0.66-1.25) mg/dL Est GFR (CKD-EPI)AfAm >90 (>60 ml/min/1.73 sqM) Est GFR (CKD-EPI)NonAf 85 (>60 ml/min/1.73 sqM) Glucose 99 (74-99) mg/dL Plasma Lactic Acid Lewis 1.1 (0.7-2.0) mmol/L Calcium 9.3 (8.4-10.2) mg/dL Total Bilirubin 1.1 (0.2-1.3) mg/dL AST 38 (17-59) U/L ALT 42 (4-49) U/L Alkaline Phosphatase 130 H (38-126) U/L C-Reactive Protein <0.5 (<1.0) mg/dL Total Protein 6.9 (6.3-8.2) g/dL Albumin 4.3 (3.5-5.0) g/dL - Radiology Data Radiology results: report reviewed, image reviewed Disposition Clinical Impression: Spider bite Disposition: HOME SELF-CARE Instructions (If sedation given, give patient instructions): Insect Bite or Sting (ED) Additional Instructions: Return to the emergency department with any new, worsening, or concerning symptoms. Alternate with ibuprofen and Tylenol as needed for pain relief. Ibuprofen or an alternative anti-inflammatory will also help with residual inflammation. Follow up with your primary care provider in 1-2 days. Is patient prescribed a controlled substance at d/c from ED?: No Referrals: Yeimi Johnson MD [Primary Care Provider] - 1-2 days
[2023-05-12 11:22] LABS: Basophils # (A) 0.1 k/uL (0-0.2); Basophils % (A) 1 %; Eosinophils # (A) 0.4 k/uL (0-0.7); Eosinophils % (A) 6 %; HGB 15.6 gm/dL (13.0-17.5); Lymphocytes # (A) 1.7 k/uL (1.0-4.8); Lymphocytes % (A) 27 %; MCH 30.3 pg (25.0-35.0); MCV 89.2 fL (80.0-100.0); Mean Platelet Volume 7.7; Monocytes # (A) 0.4 k/uL (0-1.0); Monocytes % (A) 7 %; Neutrophils # (A) 3.7 k/uL (1.3-7.7); Neutrophils % (A) 57 %; Platelet Count 278 k/uL (150-450); RBC 5.16 m/uL (4.30-5.90); RDW 12.9 % (11.5-15.5); WBC 6.5 k/uL (3.8-10.6)
--- NOTE | 2023-05-12 11:32 | XR ---
EXAMINATION TYPE: XR tibia fibula RT DATE OF EXAM: 05/12/2023 COMPARISON: NONE HISTORY: 82 year-old male right ankle infection, spider bite 5 weeks ago anterior ankle, pain TECHNIQUE: 2 views FINDINGS: There is a mild anterior soft tissue swelling at the ankle. No retained radiopaque foreign body is seen. No underlying periostitis or osteolysis or acute fracture seen. Some vascular calcifica tions are demonstrated. IMPRESSION: No acute osseous abnormality seen.
[2023-05-12 11:42] LABS: ALT 42 U/L (4-49); AST 38 U/L (17-59); African American GFR (CKD) >90 (>60 ml/min/1.73 sqM); Albumin 4.3 g/dL (3.5-5.0); Alkaline Phosphatase 130 U/L (38-126); Anion Gap 12 mmol/L; Blood Urea Nitrogen 20 mg/dL (9-20); C Reactive Protein <0.5 mg/dL (<1.0); Calcium 9.3 mg/dL (8.4-10.2); Carbon Dioxide 20 mmol/L (22-30); Chloride 104 mmol/L (98-107); Glucose 99 mg/dL (74-99); Non-African American GFR(CKD) 85 (>60 ml/min/1.73 sqM); Potassium 4.8 mmol/L (3.5-5.1); Sodium 136 mmol/L (137-145); Total Bilirubin 1.1 mg/dL (0.2-1.3); Total Protein 6.9 g/dL (6.3-8.2)
[2023-05-12] MEDS ORDERED: traMADol 50 MG STARTER PACK 3 TAB BTL PO STA (12:24)
[2023-05-12] MEDS ORDERED: IBUPROFEN 600 MG STARTER PACK 4 TAB BTL PO STA (12:24)
[2023-05-12 13:11] VITALS: BP 132/78; PULSE 76; RESP 16
== END 2023-05-12 13:01 | disposition home or self-care (01) ==
LOC: EC 09:57
DX: T63.301A Toxic effect of unspecified spider venom, accidental (unintentional), initial encounter (principal); M79.89 Other specified soft tissue disorders; E78.5 Hyperlipidemia, unspecified; I10 Essential (primary) hypertension; Z88.0 Allergy status to penicillin; Z79.899 Other long term (current) drug therapy
CPT/HCPCS: 36415; 80053; 83605; 85025; 86140; 99283

== ENCOUNTER 2023-05-23 04:23 | Emergency (ER) | payer MEDICARE ==
[2023-05-23] MEDS ORDERED: OXYMETAZOLINE 0.05% NASL SPRAY 1 SPRAY BOTTLE NASAL STA (04:47)
[2023-05-23 04:49] VITALS: RESP 16
--- NOTE | 2023-05-23 06:41 | ED ---
General Adult HPI - General Chief complaint: ENT Stated complaint: Nose bleed Time Seen by Provider: 05/23/23 05:26 Source: patient, RN notes reviewed Mode of arrival: ambulatory Limitations: no limitations - History of Present Illness Initial comments: 82-year-old male presents to the emergency department with a chief complaint. Patient reports that he woke up around 4 in the morning to use the respiratory and noticed that his nose was stripping. He reports a slow steady drip. Denies any injury. Denies dizziness lightheadedness or fatigue. Does report that he is on Eliquis. - Related Data Home Medications Medication Instructions Recorded Confirmed Amiodarone [Cordarone] 200 mg PO BID 07/23/19 07/28/19 Apixaban [Eliquis] 5 mg PO BID 07/23/19 07/28/19 Atorvastatin [Lipitor] 40 mg PO HS 07/23/19 07/28/19 B Complex-Vit C-Vit E-Zinc [Z-Bec] 1 tab PO DAILY 07/23/19 07/28/19 Calcium Carbonate [Calcium] 600 mg PO DAILY 07/23/19 07/28/19 Calcium/Magnesium/Zinc 1 each PO DAILY 07/23/19 07/28/19 [Tmpwfyz-Hojimfsey-Zwdu Tablet] Finasteride [Proscar] 5 mg PO QAM 07/23/19 07/28/19 Fish Oil/Dha/Epa [Fish Oil 1,200 1 each PO DAILY 07/23/19 07/28/19 mg Fish Oil] Metoprolol Tartrate 25 mg PO BID 07/23/19 07/28/19 Multivitamins, Thera [Multivitamin 1 tab PO DAILY 07/23/19 07/28/19 (formulary)] Tamsulosin [Flomax] 0.4 mg PO BID 07/23/19 07/28/19 Ubidecarenone [Co Q-10] 100 mg PO DAILY 07/23/19 07/28/19 lisinopriL [Zestril] 5 mg PO QAM 07/23/19 07/28/19 Allergies Allergy/AdvReac Type Severity Reaction Status Date / Time Penicillins Allergy Unknown Verified 05/12/23 10:29 Childhood Review of Systems ROS Statement: Those systems with pertinent positive or pertinent negative responses have been documented in the HPI. ROS Other: All systems not noted in ROS Statement are negative. Past Medical History Past Medical History: Atrial Flutter, Cancer, Hyperlipidemia, Hypertension, Prostate Disorder Additional Past Medical History / Comment(s): blader cancer, enlarged prostate, diverticulitis History of Any Multi-Drug Resistant Organisms: None Reported Past Surgical History: Bladder Surgery, Orthopedic Surgery, Prostate Surgery Additional Past Surgical History / Comment(s): colonoscopy, cervical disc sugery, cardioversion Past Anesthesia/Blood Transfusion Reactions: No Reported Reaction Past Psychological History: No Psychological Hx Reported Smoking Status: Never smoker Past Alcohol Use History: Rare Past Drug Use History: None Reported - Past Family History Mother Family Medical History: Cancer Additional Family Medical History / Comment(s): stomach Sister(s) Family Medical History: Cancer General Exam - General Exam Comments Initial Comments: General: Alert, in no acute distress Head: atraumatic normocephalic. Eyes PERRL, EOMI intact, mucous membranes moist, no active bleeding from either nare Respiratory: Lungs clear to auscultation bilaterally Cardiovascular: Heart rate regular rate and rhythm Abdominal: Soft without guarding or rebound Extremities: Normal inspection with full range of motion and normal capillary refill Neuroogic: alert and oriented 3, CN II-XII intact, able to ambulate with steady gait Skin: warm dry and intact with normal color Limitations: no limitations Course Vital Signs 05/23/23 05/23/23 04:27 06:40 Temperature 97.7 F 97.6 F Pulse Rate 56 L 50 L Respiratory 16 16 Rate Blood Pressure 176/87 147/74 O2 Sat by Pulse 97 97 Oximetry - Reevaluation(s) Reevaluation #1: 05/23/23 06:45 patient reevaluated. No active bleeding from nares at this time. Medical Decision Making - Medical Decision Making Was pt. sent in by a medical professional or institution (, PA, MAXILLOFACIAL PROSTHODONTIST, urgent care, hospital, or assisted...) When possible be specific @ -[No] Did you speak to anyone other than the patient for history (EMS, parent, family, police, friend...)? What history was obtained from this source @ -[No] Did you review nursing and triage notes (agree or disagree)? Why? @ -[I reviewed and agree with nursing and triage notes] Were old charts reviewed (outside hosp., previous admission, EMS record, old EKG, old radiological studies, urgent care reports/EKG's, assisted records)? Report findings @ -[No old charts were reviewed] Differential Diagnosis (chest pain, altered mental status, abdominal pain women, abdominal pain men, vaginal bleeding, weakness, fever, dyspnea, syncope, head ache, dizziness, GI bleed, back pain, seizure, CVA, palpatations, mental health, musculoskeletal)? @ -[not applicable] EKG interpreted by me (3pts min.). @ -[As above] X-rays interpreted by me (1pt min.). @ -[None done] CT interpreted by me (1pt min.). @ -[None done] U/S interpreted by me (1pt. min.). @ -[None done] What testing was considered but not performed or refused? (CT, X-rays, U/S, labs)? Why? @ -[None] What meds were considered but not given or refused? Why? @ -[None] Did you discuss the management of the patient with other professionals (professionals i.e. , PA, MAXILLOFACIAL PROSTHODONTIST, lab, RT, psych nurse, social service coordinator, pediatric licensed practical nurse, teacher, property portfolio officer, case fitter)? Give summary @ -[No] Was smoking cessation discussed for >3mins.? @ -[No] Was critical care preformed (if so, how long)? @ -[No] Were there social determinants of health that impacted care today? How? (Homelessness, low income, unemployed, alcoholism, drug addiction, transportation, low edu. Level, literacy, decrease access to med. care, skilled nursing, r ehab)? @ -[No] Was there de-escalation of care discussed even if they declined (Discuss DNR or withdrawal of care, Hospice)? DNR status @ -[No] What co-morbidities impacted this encounter? (DM, HTN, Smoking, COPD, CAD, Cancer, CVA, ARF, Chemo, Hep., AIDS, mental health diagnosis, sleep apnea, morbid obesity)? @ -[None] Was patient admitted / discharged? Hospital course, mention meds given and route, prescriptions, significant lab abnormalities, going to OR and other pertinent info. @Discharged. This is a 79-year-old male who presents the emergency department with epistaxis. Patient had a thorough history and physical exam performed. At the time of evaluation. No active bleeding from either nares, Patient observed for 2 hours without any active bleeding. Patient was discharged home. He was provided nasal clamp and aspirin. Educated on the importance of not exceeding 3 days of use. Return precautions were discussed at length. Patient discharged in stable condition. Case is discussed with Dr. Powers, P attending who agrees plan of care Undiagnosed new problem with uncertain prognosis? @ -[No] Drug Therapy requiring intensive monitoring for toxicity (Heparin, Nitro, Insuli n, Cardizem)? @ -[No] Were any procedures done? @ -[No] Diagnosis/symptom? @ -Epistaxis Acute, or Chronic, or Acute on Chronic? @ -Acute Uncomplicated (without systemic symptoms) or Complicated (systemic symptoms)? @ -Uncomplicated Side effects of treatment? @ -[No] Exacerbation, Progression, or Severe Exacerbation? @ -[No] Poses a threat to life or bodily function? How? (Chest pain, [place], [place], pneumonia, PE, COPD, DKA, ARF, appy, cholecystitis, CVA, Diverticulitis, Homicidal, Suicidal, threat to staff... and all critical care pts) @ -Low likelihood Disposition Clinical Impression: Epistaxis Disposition: HOME SELF-CARE Condition: Stable Instructions (If sedation given, give patient instructions): Nosebleed (ED) Additional Instructions: PLease re-pack nares and apply clamp if bleeding re-occurs Please return to the nearest emergency department if bleeding persists, or dizziness, lightheadedness or fatigue develop Is patient prescribed a controlled substance at d/c from ED?: No Referrals: Yeimi Johnson MD [Primary Care Provider] - 1-2 days Time of Disposition: 06:41
[2023-05-23 06:45] VITALS: BP 147/74; PULSE 50; TEMP 97.6
== END 2023-05-23 06:48 | disposition home or self-care (01) ==
LOC: EC 04:23
DX: R04.0 Epistaxis (principal); E78.5 Hyperlipidemia, unspecified; I10 Essential (primary) hypertension; I48.91 Unspecified atrial fibrillation; Z88.0 Allergy status to penicillin; Z79.01 Long term (current) use of anticoagulants; Z79.899 Other long term (current) drug therapy
CPT/HCPCS: 99283